=== PATIENT | female | born 1990 | race Caucasian/White ===

== ENCOUNTER 2016-09-08 07:21 | Emergency (ER) | payer OTHER ==
[~2016-09-08 07:21] MED LIST: LURA20TA PO; TRAZ50TA12 PO
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
[2016-09-08 09:30] VITALS: BP 132/62; PULSE 84; RESP 18; TEMP 95.8; O2SAT 98
[2016-09-08] MEDS ORDERED: KETOROLAC TROMETHAMINE 60 MG/2 ML (IM) VIAL IM ONE (09:30)
[2016-09-08] MEDS ORDERED: ACETAMINOPHEN 325 MG TAB PO ONE (09:30)
--- NOTE | 2016-09-08 10:07 | RADRPT ---
EXAM DATE/TIME: 09/08/2016 09:41 [facility] COMPARISON: No previous studies available for comparison. INDICATIONS : Right Shoulder Pain MEDICAL HISTORY : None. SURGICAL HISTORY : None. ENCOUNTER: Initial ACUITY: 1 day PAIN SCORE: 8/10 LOCATION: Right upper extremity FINDINGS: Two view examination of the right shoulder demonstrates no evidence of fracture or dislocation. The glenohumeral and acromioclavicular joints are maintained. Bony mineralization is normal. CONCLUSION: Negative for fracture or dislocation. Followup in 7-10 days is suggested if symptoms persist. Daniel Ansari MD FACR on September 08, 2016 at 10:05 Board Certified Radiologist. This report was verified electronically.
--- NOTE | 2016-09-08 10:07 | RADRPT ---
EXAM DATE/TIME: 09/08/2016 09:39 [facility] COMPARISON: No previous studies available for comparison. INDICATIONS : Chest Pain MEDICAL HISTORY : None. SURGICAL HISTORY : None. ENCOUNTER: Initial ACUITY: 1 day PAIN SCORE: 7/10 LOCATION: Bilateral chest FINDINGS: The lungs are under aerated but clear. The heart and pulmonary vascularity are normal. The portion of the bony skeleton visualized is unremarkable. CONCLUSION: Underated otherwise negative. Daniel Ansari MD FACR on September 08, 2016 at 10:05 Board Certified Radiologist. This report was verified electronically.
[2016-09-08 10:08] VITALS: BP 132/62; PULSE 84; RESP 18; TEMP 95.8; O2SAT 97
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
[2016-09-08] MEDS ORDERED: DIAZEPAM 5 MG TAB PO ONE (10:45)
[2016-09-08] MEDS ORDERED: IBUP-232 PO ×2 (10:51→11:15)
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
[2016-09-08 11:02] VITALS: RESP 18
== END 2016-09-08 11:44 | disposition home or self-care (01) ==
LOC: NEDAMB 07:21
DX: M25.562 Pain in left knee (principal); M54.2 Cervicalgia; M54.9 Dorsalgia, unspecified
CPT/HCPCS: 70450; 71010; 72125; 73030; 73560; 84703